=== PATIENT | male | born 1965 | race Caucasian/White ===

== ENCOUNTER 2018-09-10 16:21 | Outpatient (CLI) | payer BC ==
--- NOTE | 2018-09-10 16:46 | RAD ---
EXAM: XR Lumbar Spine Min 4 View PROVIDED CLINICAL HISTORY: Facet arthrosis. Patient complains of low back pain. COMPARISON: None FINDINGS: There are 5 nonrib-bearing lumbar-type vertebral bodies. The vertebral body heights are within normal limits. There is narrowing of the L5-S1 intervertebral disc space. Scattered osteophytes are seen in the lumbar spine. Facet degenerative changes are seen at the lumbosacral junction. No fracture or subluxation is seen involving the lumbar spine. IMPRESSION: Mild degenerative changes without evidence for fracture or subluxation involving the lumbar spine.
--- NOTE | 2018-09-10 16:48 | RAD ---
Exam: 3 views thoracic spine HISTORY: Facet arthrosis. FINDINGS: 12 thoracic type vertebral bodies. Vertebral body height is maintained. No fracture or sarahy lignment. Mild loss of disc space height involving the upper to mid thoracic spine. IMPRESSION: No fracture. Mild generative changes involving the upper to mid thoracic spine
== END 2018-09-10 16:22 | disposition home or self-care (01) ==
LOC: BICRAD 16:21
PROVIDERS: ATTEND Chiropractor
DX: M47.816 Spondylosis without myelopathy or radiculopathy, lumbar region (principal); M47.814 Spondylosis without myelopathy or radiculopathy, thoracic region
CPT/HCPCS: 72072; 72110